=== PATIENT | male | born 1970 | race Caucasian/White ===

== ENCOUNTER 2019-07-03 09:54 | Outpatient (CLI) | payer OTHER ==
--- NOTE | 2019-07-03 10:34 | SLEEP CARE CONSULTATION ---
Information from patient questionnaire entered by Parul Woodward. I have reviewed and concur with the information entered by Parul Woodward. This document represents the service I personally performed and the decisions made by me, Ruby Guidry MD, [facility]. History of Present Illness Reason for Visit: New patient, Previously diagnosed sleep apnea (Extremely severe - 92.5 AHI), sleep apnea on CPAP therapy (BiPap), Re-establish care Chief Complaint: reports: Other (Update BIPAP prescription) Duration of Symptoms: since 2010 Usual bedtime: 7:30 pm Time it takes to fall asleep: 5 min Snores at night: Yes (without CPAP) Observed to quit breathing while asleep: No Sleeps alone due to snoring: No Number of times waking at night: 1 Reasons for waking at night: reports: Other (always around 2 am) Toss, Turn, or Twitch while sleeping: No Recalls having dreams: Yes (sometimes) Usually gets out of bed at: 4:30 am Feels refreshed in the morning: No Morning headache: No Sleepy or fatigued during the day: Yes Ever fallen asleep while driving: Yes Takes day naps: No Dreams during day naps: No Prior sleep studies: Yes Year and Where: 2010 - [facility] Additional HPI information: I had the pleasure of seeing Mr. Villalta today regarding obstructive sleep apnea-hypopnea. As you know, he is a 49 year old gentleman who was diagnosed with the sleep-disordered breathing here in 2010. The AHI was 92.5. He was prescribed a BiPAP device set at 22/17 cmH2O. He uses every night and all night. The compliance data show usage in 180 out of the past 180 nights, averaging 9 hours a night. The > 4 hour compliance rate for the past 180 days is 100%. The residual AHI is 0.1 and average time in large leak per day is 2 seconds. He wears the ResMed AirFit P-10 nasal pillows. He got his supplies from [employer]. He finds the treatment very beneficial. - Parasomnia Symptoms Ever been unable to move upon waking from sleep: No Ever felt weak in the knees when startled or emotional: No Bothered by creepy, crawly, restless sensations in legs: No Problems with memory or concentration: Yes CPAP Compliance Data - Data Reviewed with Patient Average duration of nightly device use: 9.1 Compliance rate %: 100 (180 days) Current pressure setting (cmH2O): 22/17 Humidity settin Average residual AHI: 0.1 Average large leak: 2 sec Subjective Initial Vendor Sleepiness Scale score: 21 (in 2010) Current Vendor Sleepiness Scale score: 5 Past Medical History Past Medical History: reports: Hypertension, Gout Social History 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 Patient is Single and lives in [place]. Have you smoked in the past 12 months: No Alcohol use: Yes Alcohol amount and frequency: 3 drinks daily Caffeine use: Yes Caffeine amount and frequency: 3 cups daily Family History Family history of sleep disordered breathing: No Allergies and Home Medications Drug allergies reviewed: Yes Home medication list reviewed: Yes Review of Systems Cardiovascular: reports: high blood pressure Respiratory: reports: shortness of breath (on stairs) Gastrointestinal: denies: heartburn, difficulty swallowing, nausea, vomitting, diarrhea, abdominal pain, other Urinary: denies: incontinence, frequency, urgency, impotence, other Neurological: denies: headaches, seizure, head trauma, disorientation, speech dysfunction, gait or balance problems, fainting or unconsciousness, other Psychiatric: reports: mood disorder (in winter) Ear/Nose/Throat: reports: wisdom teeth removed Endocrine: denies: thyroid disease, history of goiter, sluggishness, too hot or cold, excessive thirst, increased appetite, increased urination, unexplained weakness, other Musculoskeletal: reports: back pain Immunologic: reports: allergies to food or environment (to environment) Physical Exam Vital signs obtained and entered by: Physical exam is deferred due to the COVID- 19 pandemic Height: 5 ft 10 in Impression and Plan IMPRESSION: 1. Obstructive Sleep Apnea-Hypopnea Syndrome, very severe, as previously diagnosed. The patient has had good treatment compliance. The current pressure setting appears effective and comfortable. The patient experiences improvement on the treatment. Narrow oropharynx and obesity are common predisposing factors for obstructive sleep apnea-hypopnea syndrome. Because the BiPAP is now older than the useful life of 5 years, I will order the patient a new one and set it 22/17 cmH2O. Plan: 1. Prescription made for a BiPAP, heated humidifier, and related supplies. 2. Try to lose weight. 3. Return for follow up after one month on the new machine. I spent 100% of this visit face to face with the patient with greater than 50% of this was spent time counseling the patient and coordination of care.
== END 2019-07-03 09:55 | disposition home or self-care (01) ==
LOC: SC 09:54
PROVIDERS: ATTEND Internal Medicine Pulmonary Disease
DX: G47.33 Obstructive sleep apnea (adult) (pediatric) (principal)
CPT/HCPCS: 99203; 99212